=== PATIENT | female | born 1955 | race Caucasian/White ===

== ENCOUNTER → 2017-02-04 | Outpatient (CLI) | payer OTHER ==
[~2017-02-04] MED LIST: LEVOTHYROXINE 0.1 MG PO; NAPHCON-A EYE D15 ML OP
== END ==
LOC: RAD 00:52
DX: Z12.31 Encounter for screening mammogram for malignant neoplasm of breast (principal)

== ENCOUNTER → 2018-02-19 | Outpatient (CLI) | payer OTHER | LOC: RAD 01:34 | DX: Z12.31 Encounter for screening mammogram for malignant neoplasm of breast (principal) ==